=== PATIENT | male | born 1950 | race Caucasian/White ===

== ENCOUNTER 2022-01-11 07:19 | Observation (INO) | payer OTHER ==
[2022-01-09 17:21] LABS: BASOPHILS # (AUTO) 0.1 (0.0-0.1); BASOPHILS % 0.9 % (0.0-1.0); EOSINOPHILS # (AUTO) 0.1 (0.0-0.4); HEMATOCRIT 44.7 % (38.2-49.6); HEMOGLOBIN 14.8 g/dL (14.0-18.0); LYMPHOCYTES # (AUTO) 1.8 (1.0-3.2); LYMPHOCYTES % 31.6 % (18.0-39.1); MEAN CORPUSCULAR HEMOGLOBIN 33.7 pg (28-32); MEAN CORPUSCULAR HGB CONC 33.1 g/dL (31-35); MEAN CORPUSCULAR VOLUME 101.8 fL (81-99); MONOCYTES # (AUTO) 0.8 (0.2-0.8); MONOCYTES % 13.4 % (4.4-11.3); NEUTROPHILS # (AUTO) 3.1 (2.1-6.9); NEUTROPHILS % 52.9 % (38.7-80.0); PLATELET COUNT 237 x10e3/uL (140-360); RED BLOOD COUNT 4.39 x10e6/uL (4.3-5.7); RED CELL DISTRIBUTION WIDTH 13.2 % (11.7-14.4)
[2022-01-09 17:32] LABS: INR 0.98; PROTHROMBIN TIME 13.9 seconds (11.9-14.5)
[2022-01-09 17:33] LABS: PARTIAL THROMBOPLASTIN TIME 25.2 seconds (23.8-35.5)
[2022-01-09 17:42] LABS: ANION GAP 15.1 mmol/L (8-16); BLOOD UREA NITROGEN 20 mg/dL (7-26); BUN/CREATININE RATIO 17 (6-25); CALCIUM 9.5 mg/dL (8.4-10.2); CARBON DIOXIDE 24 mmol/L (22-29); CHLORIDE 109 mmol/L (98-107); CREATININE, SERUM 1.17 mg/dL (0.72-1.25); GLUCOSE 86 mg/dL (74-118); POTASSIUM 4.1 mmol/L (3.5-5.1); SODIUM 144 mmol/L (136-145)
[~2022-01-11] VITALS: Ht 182.9 cm; Wt 102.5 kg
[~2022-01-11 07:19] MED LIST: ASPIRIN81 MG PO; DICLOFENAC PO; LABETALOL HCL100 MG PO; LIDOCAINE 2% /EPINEPHRINE 20 ML SDV INJ ONE; PROCARDIA XL30 MG PO; RAMIPRIL5 MG PO; THROMBIN FOR SOLN 5,000 UNIT VIAL ONE; VITAMIN B-1100 M1 PO; VITAMIN B-121000 MCG PO; Vancomycin IV 1 GM VIAL ONE
[2022-01-11] MEDS ORDERED: HYDROMORPHONE 2MG/ML 2 MG/ML ML IV PRN (09:45)
[2022-01-11] MEDS ORDERED: OXYCODONE/ACETAMINOPHEN 5-325 1 EACH TABLET PO PRN (09:45)
[2022-01-11] MEDS ORDERED: PROMETHAZINE HCL (IM) 25 MG/ML VIAL IM PRN (09:45)
[2022-01-11] MEDS ORDERED: ACETAMINOPHEN 325 MG TAB PO PRN (09:45)
[2022-01-11] MEDS ORDERED: CARISOPRODOL 350 MG TAB PO PRN (09:45)
[2022-01-11] MEDS ORDERED: CEPACOL SORE THROAT LOZENGES PO PRN (09:45)
[2022-01-11] MEDS ORDERED: MORPHINE SULFATE 5 MG/ML VIAL IM PRN (09:45)
[2022-01-11] MEDS ORDERED: MAGNESIUM/ALUMINUM/SIMETHICONE 30 ML UDC PO PRN (09:45)
[2022-01-11] MEDS ORDERED: ZOLPIDEM TARTRATE 5 MG TAB PO PRN (09:45)
[2022-01-11] MEDS ORDERED: ONDANSETRON HCL INJ 2MG/ML 2ML 2 MG/ML VIAL IV PRN (09:45)
[2022-01-11] MEDS ORDERED: FENTANYL CITRATE/PF 100MCG/2 ML INJ ONE ×2 (10:30→13:51)
[2022-01-11] MEDS ORDERED: Morphine 2mg Syringe 2 MG/ML SYR ONE (11:13)
[2022-01-11] MEDS ORDERED: DEXAMETHASONE SOD PHOS INJ 4 MG/ML SDV ONE (11:31)
[2022-01-11] MEDS ORDERED: EPHEDRINE SULFATE INJ 50 MG/ML VIAL ONE (11:31)
[2022-01-11] MEDS ORDERED: LIDOCAINE HCL 2% JELLY 5 ML TUBE ONE (11:31)
[2022-01-11] MEDS ORDERED: SUGAMMADEX SODIUM 200 MG/2 ML VIAL IV ONE (11:31)
[2022-01-11] MEDS ORDERED: SEVOFLURANE INHAL SOLN 250 ML PEN BTL ONE (11:31)
[2022-01-11] MEDS ORDERED: ROCURONIUM BROMIDE 10 MG/ML 5ML VIAL IV ONE (11:31)
[2022-01-11] MEDS ORDERED: ATROPINE SULFATE 1 MG/ML VIAL ONE (11:31)
[2022-01-11] MEDS ORDERED: POVIDONE IODINE 0.05% 0.05 % ML PO ONE (11:31)
[2022-01-11] MEDS ORDERED: ACETAMINOPHEN 1000 MG/100 ML IV ONE (11:31)
[2022-01-11] MEDS ORDERED: ONDANSETRON HCL INJ 2MG/ML 2ML 2 MG/ML VIAL ONE (11:31)
[2022-01-11] MEDS ORDERED: LIDOCAINE HCL 2% LOCAL INJ 5 ML SDV VIAL INJ ONE (11:31)
[2022-01-11] MEDS ORDERED: LIDOCAINE HCL (LTA) 4 ML SOLN ONE (11:31)
[2022-01-11] MEDS ORDERED: PROPOFOL IV EMULSION 10 MG/ML 20 ML VIAL ONE (11:31)
[2022-01-11] MEDS ORDERED: OXYCODONE/ACETAMINOPHEN 5-325 1 EACH TABLET ONE (12:00)
[2022-01-11 13:24] VITALS: BP 145/84
[2022-01-11 13:28] VITALS: BP 152/91
[2022-01-11] MEDS ORDERED: MIDAZOLAM HCL 2 MG/2 ML VIAL ONE (13:51)
[2022-01-11 15:25] VITALS: BP 142/83
[2022-01-11] MEDS: LACTATED RINGER'S 1,000 ML IV SCH ×2 (15:40→18:32)
[2022-01-11 20:00] VITALS: BP 157/87
[2022-01-12] MEDS: LACTATED RINGER'S 1,000 ML IV SCH (00:36)
[2022-01-12 04:00] VITALS: BP 139/72
[2022-01-12 07:53] VITALS: BP 122/78
[2022-01-12 08:18] VITALS: BP 122/78
[2022-01-12] MEDS ORDERED: CYANOCOBALAMIN 1,000 MCG TAB PO SCH (09:00)
[2022-01-12] MEDS ORDERED: RAMIPRIL 5 MG CAP PO SCH (09:00)
[2022-01-12] MEDS ORDERED: LABETALOL HCL 100 MG TAB PO SCH (09:00)
[2022-01-12] MEDS ORDERED: NIFEDIPINE CR 30 MG TAB PO SCH (09:00)
== END 2022-01-12 10:00 | disposition home or self-care (01) ==
LOC: OR 07:19 → EDBD 07:30 → PACU V 09:39 → MED/SURG2 12:51
PROVIDERS: ADMIT Neurological Surgery; ATTEND Neurological Surgery
DX: M48.062 Spinal stenosis, lumbar region with neurogenic claudication (principal); Z01.818 Encounter for other preprocedural examination; Z20.822 Contact with and (suspected) exposure to COVID-19; I25.2 Old myocardial infarction; I25.10 Atherosclerotic heart disease of native coronary artery without angina pectoris; M19.90 Unspecified osteoarthritis, unspecified site; Z95.1 Presence of aortocoronary bypass graft; I10 Essential (primary) hypertension
CPT/HCPCS: 0223U; 36415; 63047; 63048; 71046; 72020; 80048; 85025; 85610; 85730; 86850; 86900; 88304; 88311; 93005; 97161; G0378 ×2; J0131; J0461; J0690 ×2; J1100; J2001 ×3; J2250; J2270; J2405; J2704; J3010; J3370; J7121 ×2